=== PATIENT | female | born 1970 | race Caucasian/White ===

== ENCOUNTER → 2020-11-17 | Day surgery (SDC) | payer OTHER ==
[~2020-11-17] VITALS: Ht 157.5 cm; Wt 68.0 kg
[~2020-11-17] MED LIST: B COMPLEX1 EACH PO; BETIMOL5 ML EYEBOTH; LEXAPRO20 MG PO; NORCO 5-325 TA1 EACH PO; PHENERGAN25 M1 PO; SALMON OIL 1,01 EACH PO; TRIAMTERENE-HC1 EAC1 PO; VITAMIN D310 MC3 PO
[2020-11-17 07:56] LABS: HCT 41.2 % (37.0-47.0); HGB 14.9 g/dl (12.5-16.0); MCH 32.7 pg (25.0-31.0); MCHC 36.2 g/dL (32.0-36.0); MCV 90.4 fL (78.0-100.0); MPV 10.2 fL (6.0-9.5); RBC 4.56 M/uL (4.20-5.40); RDW 11.9 % (11.5-14.0); WBC 5.5 K/uL (4.0-10.5)
[2020-11-17 08:36] LABS: ALBUMIN 4.5 g/dL (3.4-5.0); BILIRUBIN - TOTAL 0.5 mg/dL (0.2-1.0); BUN/CREAT RATIO (CALC) 22.9 RATIO; CREATININE 0.48 mg/dL (0.51-0.95); POTASSIUM 3.5 mmol/L (3.5-5.1); TOTAL PROTEIN 8.5 g/dL (6.4-8.2)
== END | disposition home or self-care (01) ==
LOC: FAS 07:29
PROVIDERS: Surgery
DX: Z12.11 Encounter for screening for malignant neoplasm of colon (principal); K64.1 Second degree hemorrhoids; J30.9 Allergic rhinitis, unspecified; E78.00 Pure hypercholesterolemia, unspecified; I10 Essential (primary) hypertension; K58.9 Irritable bowel syndrome, unspecified; Z87.891 Personal history of nicotine dependence; Z79.899 Other long term (current) drug therapy; Z88.0 Allergy status to penicillin; Z88.8 Allergy status to other drugs, medicaments and biological substances; Z88.1 Allergy status to other antibiotic agents
CPT/HCPCS: 36415; 80053; J1100; J2704; J7120